=== PATIENT | female | born 1955 | race Caucasian/White ===

== ENCOUNTER 2018-02-17 06:29 | Emergency (ER) | payer SELFPAY ==
[2018-02-17] MEDS ORDERED: ACETAMINOPHEN 325 MG TABLET PO ONE (07:04)
[2018-02-17] MEDS ORDERED: MORPHINE SULFATE IR 15 MG TABLET PO ONE (07:04)
[2018-02-17] MEDS ORDERED: LIDOCAINE 5% (700 MG) TRANSDERMAL ADH..PATCH TP ONE (07:04)
[2018-02-17] MEDS ORDERED: ONDANSETRON 4 MG TAB.RAPDIS PO ONE (07:05)
--- NOTE | 2018-02-17 07:50 | RADIOLOGY REPORT (SQ) ---
CLINICAL HISTORY: lower back pain COMPARISON: None. TECHNIQUE: XR LUMBAR SPINE ANTEROPOSTERIOR, LATERAL, AND OBLIQUES 02/17/2018 7:04 AM [employer] FINDINGS: There is no acute fracture. There is grade 1 anterolisthesis of L4 on L5. There is mild lower lumbar facet arthritis. There is moderate amount of stool throughout the colon. There is moderate narrowing of the L4-5 and to lesser degree L5-S1 discs. Vertebral body heights are preserved. Soft tissues are unremarkable. IMPRESSION: Degenerative changes without acute fracture
[2018-02-17 07:53] LABS: APPEARANCE,URINE CLEAR; BILIRUBIN,URINE NEGATIVE (NEGATIVE); COLOR,URINE YELLOW; GLUCOSE, URINE NEGATIVE (NEGATIVE); KETONES,URINE NEGATIVE (NEGATIVE); LEUKOCYTE ESTERASE,URINE TRACE (NEGATIVE); NITRITE,URINE NEGATIVE (NEGATIVE); PROTEIN,URINE NEGATIVE (NEGATIVE); URINE SPECIFIC GRAVITY 1.018; UROBILINOGEN,URINE NEGATIVE mg/dL (<2.0)
[2018-02-17] MEDS ORDERED: IBUPROFEN 600 MG TABLET PO ONE (09:20)
--- NOTE | 2018-02-17 09:23 | ER Document Report ---
ED General Pain - General Chief Complaint: Back Pain Stated Complaint: BACK PAIN Time Seen by Provider: 02/17/18 06:58 TRAVEL OUTSIDE OF THE [place] IN LAST 30 DAYS: No - HPI Patient complains to provider of: Back pain Notes: Patient coming in for evaluation of back pain. Patient states initially the pain was on the right side of her back then to the left side of her back and now currently is in the middle of her back. Patient denies any trauma states ongoing greater than 5 days acutely worse today. Patient denies any numbness tingling bowel or bladder incontinence denies any recent trauma. Patient resting comfortably upon my evaluation. - Related Data Allergies/Adverse Reactions: No Known Allergies Allergy (Verified 02/17/18 07:58) Past Medical History - Social History Smoking Status: Never Smoker Chew tobacco use (# tins/day): No Frequency of alcohol use: None Drug Abuse: None Family History: Reviewed & Not Pertinent Patient has suicidal ideation: No Patient has homicidal ideation: No Renal/ Medical History: Denies: Hx Peritoneal Dialysis Past Surgical History: Reports: Hx Section - x2 - Immunizations Hx Diphtheria, Pertussis, Tetanus Vaccination: Yes Review of Systems - Review of Systems Constitutional: No symptoms reported EENT: No symptoms reported Cardiovascular: No symptoms reported Respiratory: No symptoms reported Gastrointestinal: No symptoms reported Genitourinary: No symptoms reported Female Genitourinary: No symptoms reported Musculoskeletal: Back pain Skin: No symptoms reported Hematologic/Lymphatic: No symptoms reported Neurological/Psychological: No symptoms reported -: Yes All other systems reviewed and negative Physical Exam - Vital signs Vitals: Temp Pulse Resp BP Pulse Ox 97.6 F 79 20 122/90 H 98 02/17/18 06:33 02/17/18 06:33 02/17/18 06:33 02/17/18 06:33 02/17/18 06:33 Interpretation: Normal - General General appearance: Appears well, Alert - HEENT Head: Normocephalic, Atraumatic Eyes: Normal Pupils: PERRL - Respiratory Respiratory status: No respiratory distress Chest status: Nontender Breath sounds: Normal Chest palpation: Normal - Cardiovascular Rhythm: Regular Heart sounds: Normal auscultation Murmur: No - Abdominal Inspection: Normal Distension: No distension Bowel sounds: Normal Tenderness: Nontender Organomegaly: No organomegaly - Back Back: Normal, Tender - Slight midline tenderness of L2-L3 - Extremities General upper extremity: Normal inspection, Nontender, Normal color, Normal ROM, Normal temperature General lower extremity: Normal inspection, Nontender, Normal color, Normal ROM, Normal temperature, Normal weight bearing. No: Bi's sign - Neurological Neuro grossly intact: Yes Cognition: Normal Orientation: AAOx4 [place] Coma Scale Eye Opening: Spontaneous [place] Coma Scale Verbal: Oriented [place] Coma Scale Motor: Obeys Commands [place] Coma Scale Total: 15 Speech: Normal Motor strength normal: LUE, RUE, LLE, RLE Sensory: Normal Knee - Reflex grade: 2 = Normal - Psychological Associated symptoms: Normal affect, Normal mood - Skin Skin Temperature: Warm Skin Moisture: Dry Skin Color: Normal Course - Re-evaluation Re-evalutation: 02/17/18 15:40 X-rays showed significant arthritis and constipation on the patient's x-rays. Urinalysis does not show any signs of infection or signs of kidney stones. Do believe patient more likely has exacerbation of her back pain due to the constipation did recommend to the patient to take an [id number] laxative such as MiraLAX treat her pain with Flexeril Tylenol Motrin. Patient is to follow-up with her primary care physician. The patient presents with low back pain without signs of spinal cord compression, cauda equina syndrome, infection, aneurysm, or other serious etiology. The patient is neurologically intact. Given the extremely low risk of these diagnoses further testing and evaluation for these possibilities does not appear to be indicated at this time. The patient has been instructed to return if the symptoms worsen or change in any way. - Vital Signs Vital signs: Temp Pulse Resp BP Pulse Ox 98.1 F 80 18 114/74 97 02/17/18 10:10 02/17/18 10:10 02/17/18 10:10 02/17/18 10:10 02/17/18 10:10 - Laboratory Laboratory results interpreted by me: 02/17/18 07:35 Urine Blood SMALL H Ur Leukocyte Esterase TRACE H Discharge - Discharge Clinical Impression: Back pain Qualifiers: Back pain location: low back pain Chronicity: acute Back pain laterality: unspecified Sciatica presence: without sciatica Qualified Code(s): M54.5 - Low back pain Constipation Qualifiers: Constipation type: unspecified constipation type Qualified Code(s): K59.00 - Constipation, unspecified Disposition: HOME, SELF-CARE Instructions: Constipation ([facility]), Family Physicians / Practices, Ice Packs ([facility]), Low Back Pain ([facility]), Oral Narcotic Medication ([facility]), Warm Packs ([facility]) Additional Instructions: Urinalysis not show any signs of urinary tract infection or signs of a kidney stone. Your x-ray of your back does show arthritic changes no signs of fracture x-rays do show a moderate amount of stool consistent with constipation. This may be exacerbating some of your underlying back pain I recommend treating her back pain Tylenol Motrin Flexeril as prescribed I would recommend taking MiraLAX or [id number] laxative follow-up with your primary care physician or physicians listed. Prescriptions: Ibuprofen [Motrin 600 mg Tablet] 600 mg PO Q8HP PRN #21 tablet PRN Reason: Cyclobenzaprine HCl [Flexeril 5 mg Tablet] 5 mg PO TID #20 tablet Forms: Return to Work
[2018-02-17 10:11] VITALS: BP 114/74
== END 2018-02-17 10:14 | disposition home or self-care (01) ==
LOC: ER 06:29
DX: M47.9 Spondylosis, unspecified (principal); K59.00 Constipation, unspecified; M54.5 Low back pain
CPT/HCPCS: 99284; 81001; 72110; S0119